=== PATIENT | female | born 1985 | race African-American/Black ===

== ENCOUNTER 2019-05-24 23:41 | Emergency (ER) | payer OTHER ==
[~2019-05-24] VITALS: Ht 167.6 cm; Wt 118.4 kg
[2019-05-24 23:49] VITALS: Ht 167.6 cm; Wt 118.4 kg
[2019-05-25 01:00] VITALS: BP 113/60
== END 2019-05-25 01:00 | disposition home or self-care (01) ==
LOC: ED 23:41
DX: S90.861A Insect bite (nonvenomous), right foot, initial encounter (principal); L03.115 Cellulitis of right lower limb; L08.9 Local infection of the skin and subcutaneous tissue, unspecified; W57.XXXA Bitten or stung by nonvenomous insect and other nonvenomous arthropods, initial encounter; Y93.89 Activity, other specified; Y92.89 Other specified places as the place of occurrence of the external cause; Y99.8 Other external cause status
CPT/HCPCS: J1885

== ENCOUNTER 2019-07-27 06:47 | Emergency (ER) | payer OTHER ==
[~2019-07-27] VITALS: Ht 157.5 cm; Wt 119.0 kg
[2019-07-27 06:52] VITALS: Ht 157.5 cm; Wt 119.0 kg
[2019-07-27 07:25] VITALS: BP 146/88
== END 2019-07-27 07:25 | disposition home or self-care (01) ==
LOC: ED 06:47
DX: K04.7 Periapical abscess without sinus (principal); I48.91 Unspecified atrial fibrillation